=== PATIENT | female | born 1955 | race Caucasian/White ===

== ENCOUNTER 2020-07-07 06:00 | Outpatient (RCR) | payer OTHER, SELFPAY | END 2020-07-21 23:59 | disposition home or self-care (01) | LOC: WPT 06:00 | PROVIDERS: PCP Nurse Practitioner Family; Referring Provider Nurse Practitioner Family; Visit Provider Nurse Practitioner Family | DX: M54.5 Low back pain (principal) | CPT/HCPCS: 97110; 97112; 97162 ==

== ENCOUNTER 2020-07-22 06:00 | Outpatient (RCR) | payer OTHER, SELFPAY | END 2020-08-20 23:59 | disposition home or self-care (01) | LOC: WPT 06:00 | PROVIDERS: PCP Nurse Practitioner Family; Referring Provider Nurse Practitioner Family; Visit Provider Nurse Practitioner Family | DX: M54.5 Low back pain (principal) | CPT/HCPCS: 97110; 97140 ==

== ENCOUNTER 2021-04-08 07:22 | Outpatient (CLI) | payer OTHER, SELFPAY ==
[2021-04-08 08:09] VITALS: BMI 40.0
--- NOTE | 2021-04-08 08:12 | ECG_ITS ---
[facility] Test Date: 2021-04-08 Pat Name: Janet Lau Department: Room: Gender: Female Patient Centered Care Specialist: Krystal Sheikhn : 1955 Requested By: Rebecca Sandoval Order Number: [id number] Small MD: Kj Jordan M.D. Interpretive Statements NAME OF STUDY: LEXISCAN SESTAMIBI STRESS TEST INDICATION: [Chest Pain, ] Procedure: At the baseline, the blood pressure was 200/104 mmHg with a heart rate of 61 bpm. The electrocardiogram showed normal sinus rhythm, normal axis with normal ST and T's. The Lexiscan was infused over a period of 20 seconds. A total of 0.4 mg of Lexiscan was infused. The stress phase was continued for a total of 5 minutes. Heart rate was at the end of stress phase was 89 bpm and a blood pressure of 204/120 mmHg. The EKG at the peak infusion revealed since normal sinus rhythm with no significant ST-T wave changes. Sestamibi was injected 20 seconds after the Lexiscan infusion. Blood pressure at the end of recovery phase was 193/108 mmHg with a heart rate of 89 bpm. Conclusion: 1. Normal EKG response to Lexiscan infusion 2. No Lexiscan induced chest pain or cardiac arrhythmia. 3. Normal blood pressure and heart rate response. 4. Sestamibi/sestamibi perfusion scan pending; see separate report. Electronically Signed On 04-15-2021 17:52:21 TRAIN MASTER by Kj Jordan M.D. [id number]
--- NOTE | 2021-04-08 08:12 | NMCV_ITS ---
NM igor perf SPECT r/s* [id number] Janet Lau Age: 65 Gender: F : 1955 Exam Date: 04/08/2021 08:50 Ordering Phys: Rebecca Cotter Technologist: MEHREEN Cheek Exam Location: [facility] Indications: CHEST PAIN STRESS TEST Please see separate stress test report in [facility] for full findings IMAGE PROTOCOL Rest/Stress 1 Lexiscan Day Radiopharmaceutical Dose (mCi) Administration Site Administered by Rest: Tc-99m 10.7 IV MEHREEN Dooley Sestamibi Stress:Tc-99m 32.8 IV MEHREEN Dooley Sestamibi Rest: 08-Apr-2021 60 Discovery 630 Stress: 08-Apr-2021 30 Discovery 630 0.4mg Lexiscan. Images obtained in supine and prone position. SPECT RESULTS Technical Quality: Excellent Raw Data Analysis: Normal Image Corrections: No attenuation or motion correction applied Summed Stress Score: 2 Summed Rest Score: 0 Summed Difference Score: 2 PERFUSION FINDINGS There is a small to moderate sized area of reversible perfusion defect noted in the apical lateral wall FUNCTIONAL RESULTS (calculated via Gated SPECT) Stress Image LV EF (%): 79 Stress EDV (mL):70 TID: 0.9 Stress ESV (mL):15 FUNCTIONAL FINDINGS: There is normal left ventricular systolic function. IMPRESSIONS 1. Abnormal myocardial perfusion imaging with small to moderate sized area of ischemia noted in the left circumflex artery territory 2. LV systolic function is normal Kj Jordan MD (Electronically Signed) Final Date: 12 April 2021 12:38 S
[2021-04-08] MEDS: regadenoson 0.4 Mg/5 ml Syringe IVP (09:53)
[2021-04-08] MEDS: ondansetron 2 mg/ML SDV 2 mL 4 MG IVP (10:04)
[2021-04-08 10:28] VITALS: BP 193/108; PULSE 79
== END 2021-04-08 07:23 | disposition home or self-care (01) ==
LOC: RAD 07:27 → CDL 07:48
PROVIDERS: PCP Nurse Practitioner Family; Visit Provider Nurse Practitioner Family
DX: R07.9 Chest pain, unspecified (principal); I25.9 Chronic ischemic heart disease, unspecified
CPT/HCPCS: 78452; 93017; A9500; J2405; J2785

== ENCOUNTER 2021-06-29 13:38 | Outpatient (CLI) | payer MEDICARE, SELFPAY ==
--- NOTE | 2021-06-29 13:53 | MM_ITS ---
WS: [id number] BILATERAL 3D TOMOSYNTHESIS DIGITAL SCREENING MAMMOGRAPHY WITH CAD CLINICAL INFORMATION: SCREENING HISTORY: Screening mammogram. Breast lumps and soreness. COMPARISON: October 18, 2007 and LEFT breast 2019 TECHNIQUE: Bilateral CC and MLO views. FINDINGS: The breasts are composed of heterogeneous fibroglandular density tissue, which can limit the detectio n of small underlying mass lesions. Focal asymmetric ovoid density outer RIGHT breast posterior depth measuring 8 mm is more conspicuous compared to previous. Recommend further evaluation with spot comp ression views and ultrasound. LEFT breast is unremarkable. A few incidental punctate clustered calcifications. MM/[place] [id number] IMPRESSION: BI-RADS: 0-Incomplete: Need additional imaging evaluation FOLLOW UP: Need Additional Imaging Recommend RIGHT breast diagnostic mammography and ultrasound for further evalua tion.
== END 2021-06-29 13:39 | disposition home or self-care (01) ==
LOC: RADSHAW 13:43
PROVIDERS: PCP Nurse Practitioner Family; Visit Provider Nurse Practitioner Family
DX: Z12.31 Encounter for screening mammogram for malignant neoplasm of breast (principal); N64.89 Other specified disorders of breast
CPT/HCPCS: 77063; 77067

== ENCOUNTER 2021-08-11 11:07 | Outpatient (CLI) | payer MEDICARE, SELFPAY ==
--- NOTE | 2021-08-11 11:32 | MM_ITS ---
WS: [id number] RIGHT 3D TOMOSYNTHESIS DIGITAL MAMMOGRAPHY WITH CAD CLINICAL INFORMATION: ABNORMAL MAMMO COMPARISON: June 29, 2021 TECHNIQUE: 3 views of the right breast were obtained. FINDINGS: Scattered fibroglandular densities of the right breast. Previously described focal asymmetric density outer RIGHT breast at the 9:00 position posterior depth measuring 8 mm is unchanged. Ultrasound is pending. ULTRASOUND BREAST RIGHT TECHNIQUE: Ultrasound right breast focused area of concern. CLINICAL INFORMATION: ABNORMAL MAMMO COMPARISON: None. FINDINGS: Ultrasound RIGHT breast 9:00 position. In the area of concern, corresponding to the mammographic abno rmality is a somewhat irregular hypoechoic taller than wide lesion measuring approximately 0.9 x 0.8 x 1.1 CM. This lesion has a suspicious appearance and is indeterminate. Recommend further evaluation ultrasound-guided biopsy. Small amount of peripheral vascularity. MM/[place] [id number] IMPRESSION: BI-RADS: 4-Suspicious Finding-Biopsy Should Be Considered FOLLOW UP: US Guided Biopsy Recommended RECOMMEND ULTRASOUND GUIDED BIOPSY OF THE RIGHT BREAST LESION.
--- NOTE | 2021-08-11 12:03 | US_ITS ---
WS: [id number] RIGHT 3D TOMOSYNTHESIS DIGITAL MAMMOGRAPHY WITH CAD CLINICAL INFORMATION: ABNORMAL MAMMO COMPARISON: June 29, 2021 TECHNIQUE: 3 views of the right breast were obtained. FINDINGS: Scattered fibroglandular densities of the right breast. Previously described focal asymmetric density outer RIGHT breast at the 9:00 position posterior depth measuring 8 mm is unchanged. Ultrasound is pending. ULTRASOUND BREAST RIGHT TECHNIQUE: Ultrasound right breast focused area of concern. CLINICAL INFORMATION: ABNORMAL MAMMO COMPARISON: None. FINDINGS: Ultrasound RIGHT breast 9:00 position. In the area of concern, corresponding to the mammographic abno rmality is a somewhat irregular hypoechoic taller than wide lesion measuring approximately 0.9 x 0.8 x 1.1 CM. This lesion has a suspicious appearance and is indeterminate. Recommend further evaluation ultrasound-guided biopsy. Small amount of peripheral vascularity. US/US breast RT limited* [id number] IMPRESSION: BI-RADS: 4-Suspicious Finding-Biopsy Should Be Considered FOLLOW UP: US Guided Biopsy Recommended RECOMMEND ULTRASOUND GUIDED BIOPSY OF THE RIGHT BREAST LESION.
== END 2021-08-11 11:08 | disposition home or self-care (01) ==
LOC: RAD 11:13
PROVIDERS: PCP Nurse Practitioner Family; Visit Provider Nurse Practitioner Family
DX: N64.89 Other specified disorders of breast (principal); R92.8 Other abnormal and inconclusive findings on diagnostic imaging of breast
CPT/HCPCS: 76642; 77061

== ENCOUNTER 2021-09-30 08:16 | Outpatient (CLI) | payer MEDICARE, SELFPAY ==
--- NOTE | 2021-09-30 08:24 | US_ITS ---
WS: [id number] ULTRASOUND-GUIDED RIGHT BREAST BIOPSY CLINICAL INFORMATION: ABNORMAL INCONCLUSIVE FINDINGS ON DIAGNOSTIC IMAGING COMPARISON: August 11, 2021 FINDINGS: The procedure including risks, benefits, and complications were discussed with the patient who agreed to proceed. Using sterile technique patient was prepped and draped in the usual sterile fashion. Aft er 1% lidocaine utilizing real-time ultrasound guidance 5 14-gauge cores were obtained of the RIGHT b reast lesion at the 9 o'clock position 4 cm from the nipple. Subsequently a titanium clip was placed in the biopsy cavity. No immediate complications. Pathology demonstrates A. Breast, right 9:00 4 cm from nipple , ultrasound-guided biopsy: - Grade 1 papillary DCIS in a background of florid usual ductal hyperplasia and sclerosing adenosis. - No invasive carcinoma identified. - See comment. US/[place] [id number] IMPRESSION: 1. Uncomplicated ultrasound-guided RIGHT breast biopsy. 2. The pathology demonstrates grade 1 papillary DCIS with usual ductal hyperpl luba and sclerosing adenosis. No invasive carcinoma. 3. Recommend Breast surgery consultation for surgical excision BI-RADS: Post Biopsy FOLLOW UP: Surgical Biopsy Recommended
== END 2021-09-30 08:17 | disposition home or self-care (01) ==
LOC: RAD 08:17
PROVIDERS: PCP Nurse Practitioner Family; Visit Provider Nurse Practitioner Family
DX: R92.8 Other abnormal and inconclusive findings on diagnostic imaging of breast (principal)
CPT/HCPCS: 19083; 88305

== ENCOUNTER → 2022-03-09 08:33 | Outpatient (BNVA) | payer MEDICARE, SELFPAY | PROVIDERS: PCP Family Medicine; Visit Provider Internal Medicine Rheumatology | DX: M06.9 Rheumatoid arthritis, unspecified (principal); Z79.899 Other long term (current) drug therapy; M05.79 Rheumatoid arthritis with rheumatoid factor of multiple sites without organ or systems involvement; N63.0 Unspecified lump in unspecified breast; Z71.85 Encounter for immunization safety counseling | CPT/HCPCS: 99204 ==

== ENCOUNTER → 2022-04-07 14:09 | Outpatient (BNVA) | payer MEDICARE, SELFPAY | PROVIDERS: PCP Family Medicine; Referring Provider Family Medicine; Visit Provider Nurse Practitioner Family | DX: D48.9 Neoplasm of uncertain behavior, unspecified (principal); L57.0 Actinic keratosis; L72.0 Epidermal cyst; L91.8 Other hypertrophic disorders of the skin; D18.01 Hemangioma of skin and subcutaneous tissue; L73.9 Follicular disorder, unspecified | CPT/HCPCS: 88305 ==

== ENCOUNTER 2023-08-08 15:18 | Emergency (ER) | payer MEDICARE, SELFPAY ==
[2023-08-08 15:21] VITALS: BP 181/88; PULSE 84; RESP 18; TEMP 36.8; O2SAT 99; BMI 28.3
--- NOTE | 2023-08-08 15:22 | ECG_ITS ---
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 Measurements Intervals [place] Rate: 85 P: 12 SC: 127 QRS: 12 QRSD: 78 T: 17 QT: 465 QTc: 554 Interpretive Statements SINUS RHYTHM MODERATE ST DEPRESSION [0.05+ mV ST DEPRESSION] PROLONGED QT INTERVAL CRITICAL TEST RESULT No previous ECG available for comparison Electronically Signed On 08-12-2023 13:18:18 CDT by Henry Vallejo M.D. [id number]
--- NOTE | 2023-08-08 15:22 | XRR_ITS ---
PROCEDURE INFORMATION: Exam: XR Chest Exam date and time: 08/08/2023 3:37 PM Age: 68 years old Clinical indication: Pain; Angina pectoris; Additional info: Chest pain TECHNIQUE: Imaging protocol: Radiologic exam of the chest. Views: 1 view. COMPARISON: No relevant prior studies available. FINDINGS: Lungs: Calcified granuloma noted in both lung bases. No consolidation. Pleural spaces: Unremarkable. No pleural effusion. No pneumothorax. Heart/Mediastinum: Unremarkable. No cardiomegaly. Bones/joints: Unremarkable. XR/XR chest 1V portable [id number] IMPRESSION: No acute findings.
--- NOTE | 2023-08-08 15:25 | ED_ITS ---
HPI - Chest Pain 2 General: Chief Complaint: Chest Pain Stated Complaint: cp Time Seen by Provider: 08/08/23 15:21 Source: patient Mode of arrival: ambulatory History of Present Illness: 68-year-old female who presents to the e mergency room with complaints of chest pain and abdominal pain with vomiting and diarrhea. She reports discomfort radiates to her left shoulder. She reports at worst the pain was 8 of 10 now it is down to what she describes as a 4 of 10. She has not noticed anything that exacerbates it or relieves it. In March 2021 patient had a cardiac stress test there is a small area of reversibility with a ejection fraction around 70%. She ended up going to [place] for the angiogram reports having had an angiogram there and had normal coronary arteries. She has not had any further evaluation or problems since then. MD complaint: chest pain Timing of current episode: episodic Onset: during rest Associated symptoms: Reports abdominal pain, nausea and vomiting; Deny diaphoresis, dyspnea, fever(s), leg edema, palpitations, sense of impending doom or syncope Review of Systems 2 Const: Denies: fever(s), chills or diaphoresis Card: Reports: chest pain; Denies: palpitations or syncope Resp: Denies: dyspnea GI: Reports: abdominal pain, nausea, vomiting and diarrhea : Denies: flank pain, dysuria, urinary frequency or urinary urgency Musc: Denies: neck pain or back pain Skin/Breast: Denies: rash PFSH ED 2 PFSH: Medical History Breast lump in female Immunization counseling High risk medication use Seropositive rheumatoid arthritis of multiple sites Obesity (BMI 35.0-39.9 without comorbidity) Intraductal carcinoma in situ of right breast Type 2 diabetes mellitus without complications Essential hypertension Mixed hyperlipidemia History of gastroesophageal reflux (GERD) Major depressive disorder, recurrent, 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 Surgical History H/O breast biopsy H/O: hysterectomy Family History Mother Osteoarthritis Sister Rheumatic arteritis Family/Other Rheumatic arteritis Physical Exam 2 Const: GENERAL APPEARANCE: cooperative and comfortable O RIENTATION/CONSCIOUSNESS: Yes awake, Yes oriented to person, Yes oriented to place and Yes oriented to time HENMT: COMMON NORMALS: normocephalic, atraumatic and hearing grossly normal bilaterally HEAD & SCALP: normocephalic and atraumatic Resp: COMMON NORMALS: normal respiratory effort, No retractions, No use of accessory muscles and clear to auscultation bilaterally AUSCULTATION: clear to auscultation bilaterally Cardio: COMMON NORMALS: regular rate, regular rhythm and No murmurs present (Cardio) RATE: regular rate RHYTHM: regular rhythm GI: COMMON NORMALS: No hepatosplenomegaly present AUSCULTATION: Yes normoactive bowel sounds PALPATION: Yes Tenderness to palpation present (GI) (Generalized tenderness), No Guarding due to palpation present (GI) and Yes No hepatosplenomegaly present Extremity: COMMON NORMALS: normal to inspection, capillary refill normal, no clubbing, cyanosis or edema, no calf tenderness and no pedal edema Neuro: SENSORIUM/ORIENTATION: Yes oriented to person, Yes oriented to place and Yes oriented to time Skin: COMMON NORMALS: no rashes or lesions noted GENERAL SKIN EXAM: no rashes or lesions noted Course 2 Vital Signs: Vital signs: Vital Signs Temperature 98.2 F 08/08/23 15:21 Pulse Rate 81 08/08/23 18:19 Respiratory Rate 16 08/08/23 18:19 Blood Pressure 168/99 08/08/23 18:19 Pulse Oximetry 99 08/08/23 18:19 Oxygen Delivery Me thod Room Air 08/08/23 18:03 MDM - Chest Pain Medical Decision Making On the EKG there is no acute EKG changes there is a slightly prolonged QT however this been present for some time. Patient is mostly concerned that she may have gallbladder issues. Liver functions are normal there is a very slight elevation of alk phos T. bili was normal white count was normal on exam not really consistent with acute cholecystitis. Will discharge patient home continue her current medications and have her follow-up with her primary care doctor. She states she is out of clonidine so we will send 15 days of clonidine into her local pharmacy she said she will pick it up in the morning. Return if she has further problems. Medical Records I reviewed the patient's medical records. Lab Data I reviewed the patient's lab results. 08/08/23 16:10 08/08/23 14:08 Radiology Impressions Chest X-Ray 08/08/23 15:22 IMPRESSION: No acute findings. Abdomen/Pelvis CT 08/08/23 15:51 IMPRESSION: 1. No acute findings. 2. Punctate nonobstructing stone in the right kidney. 3. 2.8 cm ovoid lesion projecting over the left anterior vaginal wall, nonspecific, but most resembles a [place] duct cyst. Correlate for any corresponding symptomology. COMMENTS: Consistent with the [employer]'s Incidental Findings Committee white paper (J Am Pablo Radiol 2018): Any incidental renal lesion less than 1 cm or classified as too small to characterize, or any incidental cystic renal lesion characterized as simple-appearing, is likely benign. No follow-up imaging is recommended for these lesions per consensus recommendations based on imaging criteria. Laboratory Results WBC 10.64 10^3/uL (3.29-11.43) 08/08/23 16:10 RBC 4.23 10^6/uL (3.85-5.65) 08/08/23 16:10 Hgb 12.20 g/dL (11.27-16.99) 08/08/23 16:10 Hct 37.0 % (36-47) 08/08/23 16:10 MCV 87.5 fl (85-98) 08/08/23 16:10 MCH 28.8 pg (27-33) 08/08/23 16:10 MCHC 33.0 g/dL (30-55) 08/08/23 16:10 RDW 16.7 % (12.1-15.1) H 08/08/23 16:10 Plt Count 363 10^3/cmm (157-399) 08/08/23 16:10 MPV 8.6 fL (7.4-10.4) 08/08/23 16:10 Neut % (Auto) 59.4 % 08/08/23 16:10 Lymph % (Auto) 29.0 % 08/08/23 16:10 Weber % (Auto) 9.9 % 08/08/23 16:10 Eos % (Auto) 0.8 % 08/08/23 16:10 Baso % (Auto) 0.6 % 08/08/23 16:10 Neut # (Auto) 6.33 10^3/uL (1.8-7.7) 08/08/23 16:10 Lymph # (Auto) 3.1 10^3/uL (0.8-4.8) 08/08/23 16:10 Weber # (Auto) 1.1 10^3/uL (0.2-0.9) H 08/08/23 16:10 Eos # (Auto) 0.1 10^3/uL (0.0-0.8) 08/08/23 16:10 Baso # (Auto) 0.1 10^3/uL (0.0-0.1) 08/08/23 16:10 Nucleated RBC % (auto) 0 % 08/08/23 16:10 Nucleated RBCs # 0.0 /100WBC 08/08/23 16:10 Sodium 136 mmol/L (136-145) 08/08/23 14:08 Potassium 3.4 mmol/L (3.5-5.1) L 08/08/23 14:08 Chloride 92 mmol/L (98-107) L 08/08/23 14:08 Carbon Dioxide 26 mmol/L (22-29) 08/08/23 14:08 Anion Gap 21.4 (5-19) H 08/08/23 14:08 BUN 26 mg/dL (8-23) H 08/08/23 14:08 Creatinine 0.9 mg/dL (0.5-0.9) 08/08/23 14:08 GFR Calculation 62.5 mL/min (90-130) L 08/08/23 14:08 Glucose 103 mg/dL (65-115) 08/08/23 14:08 Calculated Osmolality 287 mOsm/kg (285-295) 08/08/23 14:08 Calcium 10.0 mg/dL (8.5-10.5) 08/08/23 14:08 Total Bilirubin 0.6 mg/dL (0.15-1.2) 08/08/23 14:08 AST 13 U/L (0-32) 08/08/23 14:08 ALT 9 U/L (0-33) 08/08/23 14:08 Alkaline Phosphatase 134 U/L (35-105) H 08/08/23 14:08 Troponin T Baseline 16 ng/L (0-10) H 08/08/23 14:08 Troponin T 120 Minute Cancelled 08/08/23 16:46 Delta Troponin T Cancelled 08/08/23 16:46 Total Protein 7.5 g/dL (6.6-8.7) 08/08/23 14:08 Albumin 4.3 g/dL (3.5-5.2) 08/08/23 14:08 Globulin 3.2 g/dL (1.3-4.6) 08/08/23 14:08 All radiology interpretation(s) finalized by discharge Discharge Plan Discharge Patient Disposition: Home Clinical Impression: Atypical chest pain, Seropositive rheumatoid arthritis of multiple sites Prescriptions: No Action atenolol 25 mg tablet 25 mg PO DAILY diphenhydramine HCl [Allergy (diphenhydramine)] 25 mg capsule 25 mg PO QID PRN fluticasone propionate [Allergy Relief (fluticasone)] 50 mcg/actuation spray,suspension 2 spray intranasal DAILY Rx Instructions: administer into each nostril liraglutide 0.6 mg/0.1 mL (18 mg/3 mL) pen injector 0.6 mg SUBCUT DAILY loratadine [Allergy Relief (loratadine)] 10 mg tablet 10 mg PO DAILY pantoprazole 40 mg tablet,delayed release (DR/EC) 40 mg PO DAILY paroxetine HCl 40 mg tablet 40 mg PO DAILY potassium chloride [Klor-Con M20] 20 mEq tablet,ER particles/crystals 20 meq PO DAILY rosuvastatin 20 mg tablet 20 mg PO DAILY acetaminophen [Tylenol Arthritis Pain] 650 mg tablet extended release 650 mg PO Q8H celecoxib [Celebrex] 200 mg capsule 200 mg PO BID Qty: 30 1RF Discharge Orders: Discharge ED (Routine); Ordered 08/08/23 Ordered By: Emre Coats Referrals: Doroteo Ellison [Primary Care Provider] - Discharge Diet: Usual diet Discharge Activity: Increase activity as tolerated Patient Instructions: Opioid Safety, Pain Management Activity Restrictions/Additional Instructions: Thank you for choosing [facility] for your healthcare needs today. It is very important that you follow up as instructed or that you return to the Emergency Department should you have concerns or if your condition changes or worsens in any way. You were seen today with complaints of chest pain that you had for 4 days. Your EKG is similar to an EKG done several years ago. There is no acute changes. Your cardiac enzymes were normal. He had also complaints of abdominal discomfort CT of the abdomen was unremarkable the white count was normal and your liver functions did not show any signs of acute gallbladder infection. Discharge you home recommend you follow-up with your primary care doctor to reevaluate your blood pressure. If your symptoms worsen or change return. You should also follow-up with your primary care doctor to review this visit and assess whether or not you need further testing such as a stress test. Coding Level of Care Code ED Classroom Instructor for Ramin Ramirez
[2023-08-08 15:31] VITALS: BP 181/88; PULSE 89; RESP 18; O2SAT 99
--- NOTE | 2023-08-08 15:51 | CTR_ITS ---
PROCEDURE INFORMATION: Exam: CT Abdomen And Pelvis With Contrast Exam date and time: 08/08/2023 4:17 PM Age: 68 years old Clinical indication: Abdominal pain; Localized; Prior surgery; Surgery date: 6+ months; Surgery type: Hyst; Patient HX: PT describles lower to mid abd pain TECHNIQUE: Imaging protocol: Computed tomography of the abdomen and pelvis with contrast. Radiation optimization: All CT scans at this facility use at least one of these dose optimization techniques: automated exposure control; mA and/or kV adjustment per patient size (includes targeted exams where dose is matched to clinical indication); or iterative reconstruction. Contrast material: OMNI 350; Contrast volume: 100 ml; Contrast route: INTRAVENOUS (IV); COMPARISON: CR XR chest 1V portable [id number] 08/08/2023 3:37 PM RADIATION DOSE METRICS: Total DLP (mGy-cm): 752 FINDINGS: Liver: Normal. No mass. Gallbladder and bile ducts: Normal. No calcified stones. No ductal dilation. Pancreas: Normal. No ductal dilation. Spleen: Normal. No splenomegaly. Adrenal glands: Normal. No mass. Kidneys and ureters: 2.1 cm simple cyst noted in the lower pole of the right kidney. 1.2 cm minimally complex cyst with thin internal septations upper pole the left kidney. Punctate nonobstructing stone in the right kidney. No hydronephrosis. Stomach and bowel: Unremarkable. No obstruction. No mucosal thickening. Appendix: No evidence of appendicitis. Intraperitoneal space: Unremarkable. No free air. No significant fluid collection. Vasculature: No abdominal aortic aneurysm. Lymph nodes: Unremarkable. No enlarged lymph nodes. Urinary bladder: Unremarkable as visualized. Reproductive: Hysterectomy. There is an ovoid hyperattenuating area of soft tissue projecting over the left anterior vaginal wall measuring 2.8 cm in size as best seen on series 3, image 88. Bones/joints: No acute fracture. Soft tissues: Unremarkable. CT/CT abdomen pelvis w con* [id number] IMPRESSION: 1. No acute findings. 2. Punctate nonobstructing stone in the right kidney. 3. 2.8 cm ovoid lesion projecting over the left anterior vaginal wall, nonspecific, but most resembles a [place] duct cyst. Correlate for any corresponding symptomology. COMMENTS: Consistent with the [employer]'s Incidental Findings Committee white paper (J Am Pablo Radiol 2018): Any incidental renal lesion less than 1 cm or classified as too small to characterize, or any incidental cystic renal lesion characterized as simple-appearing, is likely benign. No follow-up imaging is recommended for these lesions per consensus recommendations based on imaging criteria.
[2023-08-08 16:05] LABS: Troponin(5th) Baseline 16 ng/L (0-10)
[2023-08-08 16:07] LABS: Alanine Aminotransferase 9 U/L (0-33); Albumin Level 4.3 g/dL (3.5-5.2); Alkaline Phosphatase 134 U/L (35-105); Anion Gap 21.4 (5-19); Aspartate Amino Transferase 13 U/L (0-32); Blood Urea Nitrogen 26 mg/dL (8-23); Carbon Dioxide 26 mmol/L (22-29); Chloride 92 mmol/L (98-107); Creatinine Clr Calc Pharmacy 51.3334; Globulin 3.2 g/dL (1.3-4.6); Glomerular Filtration Rate 62.5 mL/min (90-130); Glucose 103 mg/dL (65-115); Osmolality Calculated 287 mOsm/kg (285-295); Potassium 3.4 mmol/L (3.5-5.1); Sodium 136 mmol/L (136-145); Total Bilirubin 0.6 mg/dL (0.15-1.2); Total Protein 7.5 g/dL (6.6-8.7)
[2023-08-08] MEDS: iohexol 350 mg/mL 500 mL Btl (per mL) IV (16:19)
[2023-08-08 16:22] VITALS: BP 162/104; PULSE 82; RESP 18; O2SAT 100
[2023-08-08 16:22] LABS: Basophils # 0.1 10^3/uL (0.0-0.1); Basophils % 0.6 %; Eosinophils # 0.1 10^3/uL (0.0-0.8); Eosinophils % 0.8 %; Lymphocytes # 3.1 10^3/uL (0.8-4.8); Mean Corpuscular Hemoglobin 28.8 pg (27-33); Mean Corpuscular Volume 87.5 fl (85-98); Mean Platelet Volume 8.6 fL (7.4-10.4); Monocytes # 1.1 10^3/uL (0.2-0.9); Monocytes % 9.9 %; Neutrophils # 6.33 10^3/uL (1.8-7.7); Neutrophils % 59.4 %; Nucleated Red Blood Cells % 0 %; Platelet Count 363 10^3/cmm (157-399); Red Blood Count 4.23 10^6/uL (3.85-5.65); Red Cell Distribution Width 16.7 % (12.1-15.1); White Blood Count 10.64 10^3/uL (3.29-11.43)
--- NOTE | 2023-08-08 17:22 | ECG_ITS ---
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 Measurements Intervals [place] Rate: 81 P: 16 MT: 122 QRS: 11 QRSD: 82 T: 34 QT: 522 QTc: 610 Interpretive Statements SINUS RHYTHM WITH OCCASIONAL SUPRAVENTRICULAR PREMATURE COMPLEXES SEPTAL MYOCARDIAL INFARCTION , PROBABLY OLD [40+ ms Q WAVE IN V1/V2] PROLONGED QT INTERVAL CRITICAL TEST RESULT Compared to ECG 08/08/2023 15:26:31 Myocardial infarct finding now present ST (T wave) deviation no longer present Electronically Signed On 08-12-2023 13:46:08 CDT by Henry Vallejo M.D. [id number]
[2023-08-08 18:03] VITALS: BP 168/99; PULSE 85; RESP 16; O2SAT 100
[2023-08-08 18:19] VITALS: BP 168/99; PULSE 81; RESP 16; O2SAT 99
== END 2023-08-08 18:20 | disposition home or self-care (01) ==
PROVIDERS: Emergency Provider Family Medicine; PCP Family Medicine
DX: R07.89 Other chest pain (principal); M05.89 Other rheumatoid arthritis with rheumatoid factor of multiple sites; E11.9 Type 2 diabetes mellitus without complications; I10 Essential (primary) hypertension; E78.2 Mixed hyperlipidemia
CPT/HCPCS: 36415; 71045; 74177; 80053; 84484; 85025; 93005; 99285; Q9967